=== PATIENT | male | born 1965 | race Caucasian/White ===

== ENCOUNTER → 2020-07-30 | Outpatient (CLI) | payer OTHER | LOC: M.PUL 10:30 | PROVIDERS: ATTEND Orthopaedic Surgery | DX: J45.909 Unspecified asthma, uncomplicated (principal) ==

== ENCOUNTER → 2021-07-21 | Outpatient (CLI) | payer OTHER ==
--- NOTE | ~2021-07-21 | PF ---
[address] [address] PULMONARY FUNCTION REPORT Name: CROW WILL Room: [facility]..#: [id number] Admission: 07/21/21 Attend Phys: Jimmy Zee [facility] Discharge: Date of : 61 Report #: [id number] THIS REPORT FOR: cc: [facility] - Clinic physician unknown [facility] - Clinic physician unknown Arnaldo Oreilly MD ~ DATE OF VISIT: 07/21/2021 INTERPRETATION: The FEV1/FVC ratio is normal at 70% with an FVC normal at 82%. The FEV1 is mildly decreased to 75%. The FEF 25-75 is decreased to 53%. After the administration of a bronchodilator, there is no significant increase in any of these values. The patient's post-bronchodilator FEV1 is 2.64 liters. The flow volume loop is concave upwards. Only a spirometry was performed. IMPRESSION: Mild obstruction without evidence of reversibility. By: [id number] Oreilly MD /nt
== END ==
LOC: M.PUL 10:56
PROVIDERS: ATTEND Chiropractor
DX: J98.8 Other specified respiratory disorders (principal); J30.9 Allergic rhinitis, unspecified